=== PATIENT | female | born 1990 | race Caucasian/White ===

== ENCOUNTER → 2023-08-03 14:30 | Day surgery (SDC) | payer OTHER, SELFPAY ==
[2023-08-03] VITALS (7 sets, daily range): BP systolic 115–180; BP diastolic 80–119; BMI 29.4
--- NOTE | 2023-08-03 08:38 | ED.GENMED ---
History of Present Illness
General
Chief Complaint: Foreign Body Removal
Source: patient
Exam Limitations: none
Time Seen by Provider: 08/03/23 08:27
Nursing documentation reviewed up to this point in time: agreed with
Travel History
Have you had any contact with someone who has COVID-19?: No
Do you have any symptoms of coronavirus? Fever > 100 degrees, chills, cough, shortness of breath, sore throat, loss of taste or smell, muscle aches, or headache?: No
History of Present Illness
History of Present Illness:
32-year-old female with no medical problems presents claiming that she has a butt plug in her rectum since midnight. Patient says she has tried bearing down without success. She has no abdominal pain or rectal pain. There is been no rectal
bleeding.
Past History
Past History
ED Past Medical History: None
ED Past Surgical History: None
Review of Systems
Review of Systems
Allergies reviewed?: Yes
All Other Systems: Not applicable
Phy Exam
Physical Exam
Physical Exam:
GENERAL: Alert , tearful and anxious
EYE: pupils equal and reactive
NECK: Supple
ENT: o/p clr, mmm.
CARDIAC: Regular rate and rhythm .
LUNGS: Clear breath sounds bilaterally, no acute respiratory distress, no wheezes/rales/rhonchi
ABDOMEN: Soft, without focal tenderness, no r/g, no cvat, normal bowel sounds
Rectal foreign body palpated, it is a silicone material and difficult to remove after several attemps
internal nonbleeding hemrroids on anoscopic exam
NEUROLOGICAL: Alert and oriented, no focal neuro deficits
SKIN: Warm and dry, skin intact.
PSYCH: Normal and appropriate interaction.
Course
Orders/Labs/Results
Orders:
Orders
08/03/23 Breakfast
NPO
Allow oral meds: No
Allow clear liquids: No
NPO with Ice Chips: No
08/03/23 08:28
Abdomen Xray - 1 View [CR Abdomen - 1 View] Urgent
Comment:
Reason For Exam: anal fb
08/03/23 11:15
Complete Blood Count/With Diff Urgent
Comprehensive Metabolic Panel Urgent
Abnormal Lab Results
08/03/23
11:15
WBC 12.1 H 10^3/uL
(4.8-10.8)
RBC 3.94 L 10^6/uL
(4.20-5.40)
Hgb 11.6 L g/dL
(12.0-16.0)
Hct 34.2 L %
(37.0-47.0)
Plt Count 443 H 10^3/uL
(130-400)
Abs Immat Gran (auto) 0.2 H 10^3/uL
(0-0.05)
Absolute Neuts (auto) 8.6 H 10^3/uL
(1.4-6.5)
Absolute Monos (auto) 0.8 H 10^3/uL
(0.1-0.6)
Immature Gran % 1.6 H %
(0-0.5)
Lymphocytes % 17.9 L %
(20.5-51.1)
BUN 19 H mg/dl
(7-17)
Glucose 108 H mg/dl
(70-99)
ALT 38 H U/L
(0-35)
08/03/23 11:15
08/03/23 11:15
Vital Signs
Initial and Last Documented VS:
Initial Vital Signs
Temp Pulse Resp BP Pulse Ox
98.0 F 117 16 180/119 100
08/03/23 08:24 08/03/23 08:24 08/03/23 08:24 08/03/23 08:24 08/03/23 08:24
Last Documented Vital Signs
Temp Pulse Resp BP Pulse Ox
98.0 F 117 16 137/88 100
08/03/23 08:24 08/03/23 08:24 08/03/23 08:24 08/03/23 11:14 08/03/23 08:24
MDM/Problems Addressed
Differential Diagnosis Includes:
Retained foreign body
MDM/Problems Addressed:
32-year-old female with no medical problems presents for a silicone rectal foreign body since last night. Patient has no tenderness or no bleeding on exam, the anal butt plug was palpable but unfortunately after several attempts we could not remove
it, because of its composition, not being firm was difficult to pass at the curve of the rectum. My attending Dr. Manriquez and I attempted several times, patient did tolerate the procedure well. We used an anoscope but did not use any forceps.
Patient was seen by colorectal surgeon Dr. Jason who also manually tried to remove it but was unsuccessful. Patient will go to the OR
*Critical Care Note
Total Time (30-74mins, 75-104mins- exclusive of procedures): Not Applicable
ED Attending Note
-
Portions of this chart may have been created with voice recognition software.� Occasional wrong word or��sound alike� substitutions may have occurred due to the inherent limitations of voice recognition software.
Discharge Plan
Departure
Patient Disposition: Admit
Date of Disposition: 08/03/23
Time of Disposition: 11:02
Admit to: OR
Admit to doctor: joanna
Presentation/result/management discussed w/ accepting MD/DO: joanna
Patient with high blood pressure during this ER visit?: Yes
Condition: Fair
Covid-19: Not Applicable
Discharge Problem:
FB anus/rectum
Prescriptions:
No Action
cefuroxime axetil 250 mg Tablet
250 mg PO BID
Patient Comments:
08/03/2023, pt. filled this med. on 08/01/2023 and is instructed to take one tablet BID for 10 days; per pt, she started taking this med. on Friday (08/01/2023).
methylprednisolone 4 mg Tablets,Dose Pack
0 mg PO PER PKG DIR
Patient Comments:
08/03/2023, pt. filled this med. on 08/01/2023 and started taking on this day as well.
norethindrone (contraceptive) [Incassia] 0.35 mg Tablet
0.35 mg PO DAILY@1600
Visbiome 112.5 billion cell Capsule
1 cap PO DAILY
Referrals:
Jaden Ring MD [Family Provider] -
Interventions
Interventions:
*Risk Screen - Suicide Last Done: 08/03/23 08:41
*General Assessment Last Done: 08/03/23 08:41
*Neglect/Abuse Screening Last Done: 08/03/23 08:41
ED- Fall Risk Assessment Last Done: 08/03/23 08:41
*ED COVID-19 Vaccine History Last Done: 08/03/23 08:24
Discharge Date and Time
Print Language: RWANDAN
--- NOTE | 2023-08-03 10:39 | EDRN ---
colorectal currently at the pts bedside with Vi VELASQUEZ
[2023-08-03 11:21] LABS: % Basophils 1.2 % (0-2); % Eosinophils 1.4 % (0-6); % Immature Granulocytes 1.6 % (0-0.5); % Lymphocytes 17.9 % (20.5-51.1); % Monocytes 6.7 % (1.7-9.3); % Neutrophils 71.2 % (42.2-75.2); Absolute Basophils 0.2 10^3/uL (0-0.2); Absolute Eosinophils 0.2 10^3/uL (0-0.7); Absolute Immature Granulocytes 0.2 10^3/uL (0-0.05); Absolute Lymphocytes 2.2 10^3/uL (1.2-3.4); Absolute Monocytes 0.8 10^3/uL (0.1-0.6); Absolute Neutrophils 8.6 10^3/uL (1.4-6.5); Hematocrit 34.2 % (37.0-47.0); Hemoglobin 11.6 g/dL (12.0-16.0); Mean Corp Hgb Conc. 33.9 g/dL (33.0-37.0); Mean Corpuscular Hgb 29.4 pg (27.0-31.0); Mean Corpuscular Volume 86.8 fL (81.0-99.0); Mean Platelet Volume 8.7 fL (7.4-10.4); Nucleated Red Blood Cells % 0 %; Platelet Count 443 10^3/uL (130-400); Red Blood Cell Count 3.94 10^6/uL (4.20-5.40); Red Cell Dist. Width 12.5 % (11.5-14.5); White Blood Cell Count 12.1 10^3/uL (4.8-10.8)
--- NOTE | 2023-08-03 11:43 | HPS.HSE ---
Addendum entered and electronically signed by Alverto Jason MD 08/03/23 14:14:
I saw and examined the patient independently.
The Clinical Support Manager's note was reviewed and I agree with the note, assessment and plan except where noted below.
Comment: This is a 32-year-old female who presents with a retained silicone foreign body in the rectum since midnight last night. After failing to remove the object at home she presented to our ED where multiple providers attempted to remove the
object. Colorectal/general surgery was consulted to assist. General surgery also performed bedside digital rectal exam and attempted to retrieve the foreign body however was unsuccessful due to the angulation of the rectum and pain.
Will plan for exam under anesthesia in the OR for removal of a rectal foreign body.
N.p.o., IV fluids, no antibiotics needed.
Risks/Benefits/Alternatives, expected postoperative course and possible complications (bleeding, infection, injury to surrounding structures, acute/chronic pain) discussed at length. Patient wishes to proceed with surgery. All questions answered.
Consent obtained.
I spent roughly 75 minutes in total for the care of this patient today including direct patient care and counseling, reviewing labs, imaging, coordination of care, as well as documentation.
Original Note:
Family Physician
-
Family Physician: Jaden Ring
Chief Complaint
-
rectal pain
History of Present Illness
This is a 32 yo female with no significant medical problems or surgical history who presents with a retained silicone foreign body in the rectum since around midnight last night. She attempted removal at home and has been trying to bear down but
without success. The object was unable to be removed at bedside in the ED despite multiple attempts. There is no rectal bleeding present. She denies abdominal or rectal pain but does note rectal pressure.
Medical History
Past Medical History
Past Medical History: Reports None
Past Surgical History: Reports None
Social History
Tobacco: Non-smoker
Alcohol: None
Family History
Family History: Not pertinent
Allergies / Home Medications
Allergies reflects when Allergies were last updated in [email or web address].
Home Medications with original date entered in [email or web address]
Allergy/Medication List:
Patient Allergies
Allergy/AdvReac Type Severity Reaction Status Date / Time
No Known Allergies Allergy Unverified 08/03/23 08:24
�Medication �Instructions �Recorded �Confirmed �Type
Lactobac no.2-Bifidobac no.1-S. 1 cap PO DAILY 08/03/23 08/03/23 History
thermo 112.5 billion cell capsule
(Visbiome)
cefuroxime axetil 250 mg tablet 250 mg PO BID 08/03/23 08/03/23 History
methylprednisolone 4 mg tablets in 0 mg PO PER PKG DIR 08/03/23 08/03/23 History
a dose pack
norethindrone (contraceptive) 0.35 0.35 mg PO DAILY@1600 08/03/23 08/03/23 History
mg tablet (Incassia)
Review of Systems
-
History Source: Patient
A 12 point ROS was completed and negative except as noted: Yes
Physical Exam
Vital Signs
Vital Signs
Temp Pulse Resp BP Pulse Ox
98.0 F 117 16 180/119 100
08/03/23 08:24 08/03/23 08:24 08/03/23 08:24 08/03/23 08:24 08/03/23 08:24
Physical Exam
General: Well Developed and Well Nourished
HEENT: Moist mucous membranes
GI: Soft, Non Tender and Non Distended
Rectal: Other (no bleeding, or injury noted. palpable base of silicone object within the anus: unable to grasp for removal)
Skin: Warm and Dry
Neuro: Awake, Alert and AO x 3
Laboratory Results
-
08/03/23 11:15
Data Reviewed
-
Diagnostic Radiology: Image Personally Visualized and interpreted, Report Reviewed by me, Discussed with Physician, Discussed with Patient and Discussed with Family
Lab Data: Labs Reviewed by me and Discussed with Physician
Old Records: Reviewed
Impression/Plan
-
IMPRESSION: 32 yo female with no significant medical history presenting with retained rectal foreign object unable to be be removed at bedside. Mild tachycardia otherwise AFVSS. Mild reactive leukocytosis. Rectal pressure without pain. No abdominal
pain. No rectal bleeding present.
PLAN:
Keep NPO for exam under anesthesia in the OR and removal of foreign body
[2023-08-03 12:05] LABS: ALT (SGPT) 38 U/L (0-35); AST (SGOT) 25 U/L (14-36); Albumin 4.1 g/dl (3.5-5.0); Alkaline Phosphatase 95 U/L (38-126); Blood Urea Nitrogen 19 mg/dl (7-17); Calcium 9.9 mg/dl (8.4-10.2); Carbon Dioxide 23 mmol/L (22-30); Chloride 107 mmol/L (98-107); Estimated Creatinine Clearance > 125 ml/min; Glucose 108 mg/dl (70-99); Potassium 4.6 mmol/L (3.5-5.1); Sodium 138 mmol/L (135-145); Total Bilirubin 0.2 mg/dl (0.2-1.3); Total Protein 6.9 g/dl (6.3-8.2); eGFR > 60.00
--- NOTE | 2023-08-03 13:56 | EDRN ---
the OR called this RN for report, verbal report given to LACROSSE COACH
--- NOTE | 2023-08-03 14:36 | W.SUR.PREOP ---
Pre-Operative Surgical Note
-
I have examined this patient prior to the performance of the scheduled procedure.
The patient's condition is unchanged from the time of the current History and
Physical and the patient is able to undergo the scheduled procedure.
--- NOTE | 2023-08-03 15:07 | W.IMMPOSTOP ---
Surgical Immed Post Op Note
-
Primary Surgeon: Alverto Jason MD
Assisting Surgeon: None
Pre-op Diagnosis: Retained foreign body in the rectum
Post-op Diagnosis: Same
Procedure Performed:
1. EUA and removal of rectal foreign body
Anesthesia Type: General
Specimen / Cultures: None
Estimated Blood Loss: 0 cc
Complications: None
Operative Findings: A roughly 5 x 3 cm orange 'butt plug' was removed successfully.
POST OP PLAN:
Will discharge home.
--- NOTE | 2023-08-03 15:10 | OR.RPT ---
Addendum entered and electronically signed by Alverto Jason MD 08/03/23 17:17:
Under procedure details:
Correction: NO IV abx were administered.
Addition: The anus and rectum appeared healthy and there was no sign of trauma.
Original Note:
Operative Report
Operative Report
Patient Name: Octavia Green
: 1990
Date of Operation: 08/03/2023
Preoperative Diagnosis: Retained foreign body in the rectum
Postoperative Diagnosis: Same
Procedure(s):
Exam under anesthesia and removal of rectal foreign body
Surgeon(s):
Dr. Jason
Aerial Sprayer(s):
None
Anesthesia: General
Estimated Blood Loss: 0 cc
Urine Output: None
Drains/Lines/Implants: None
Specimens:
None
HPI/Surgical Indications:
This is a 32-year-old female who presents with a 1 day history of a retained rectal foreign body. Efforts were made in the emergency department to remove the object however these were unsuccessful. Risks/Benefits/Alternatives were discussed at
length, and the patient agreed to proceed with an exam under anesthesia
Findings:
A roughly 5 x 3 cm orange 'butt plug' was removed and removed successfully.
Procedure Description:
The patient was brought to the Operating Room and placed in the dorsal lithotomy position with the arms out. IV antibiotics were infused and Venodyne stockings placed. Following uneventful induction of general anesthesia, the buttocks was prepped
and draped in the usual sterile fashion. A rigid anoscope was placed into the anus and the foreign body was readily visualized, grasped and removed. See findings above. Overall, the patient tolerated the procedure well and was taken to the
Recovery Room postoperatively in stable condition.
I was the attending physician and performed the procedure with no assistance. I was present for all portions of the case
Alverto Jason MD
== END | disposition home or self-care (01) ==
LOC: EMR 08:20 → PACU 14:30
PROVIDERS: ATTENDING PHYSICIAN Physician Assistant; EMERGENCY PHYSICIAN Emergency Medicine; FAMILY PHYSICIAN Internal Medicine
DX: T18.5XXA Foreign body in anus and rectum, initial encounter (principal); Y93.89 Activity, other specified
CPT/HCPCS: 45915; 74018; 80053; 85025; 99285